=== PATIENT | male | born 1970 | race Asian ===

== ENCOUNTER → 2017-03-28 | Outpatient (CLI) | payer OTHER | LOC: CIMAGING 14:47 | PROVIDERS: ATTEND Physician Assistant | DX: K82.4 Cholesterolosis of gallbladder (principal) | CPT/HCPCS: 76705-PO ==

== ENCOUNTER → 2017-12-24 | Outpatient (CLI) | payer OTHER | LOC: CIMAGING 07:20 | PROVIDERS: ATTEND Physician Assistant | DX: R93.2 Abnormal findings on diagnostic imaging of liver and biliary tract (principal); K82.4 Cholesterolosis of gallbladder; B19.10 Unspecified viral hepatitis B without hepatic coma | CPT/HCPCS: 76705-PO ==